=== PATIENT | male | born 1970 | race African-American/Black ===

== ENCOUNTER 2021-09-06 15:37 | Emergency (ER) | payer MEDICAID, OTHER ==
[~2021-09-06] VITALS: Ht 185.4 cm; Wt 104.0 kg
[~2021-09-06 15:37] MED LIST: AMLO10TA4 PO; ASPI-1079 PO; BENA10TA74 PO
[2021-09-06] MEDS ORDERED: HYDROCODONE/ACETAMINOPHEN 5/325MG TABLET PO ONE (18:45)
[2021-09-06] MEDS ORDERED: IBUPROFEN 600MG TABLET PO ONE (18:45)
[2021-09-06] MEDS ORDERED: IBUP-2028 MT (18:50)
[2021-09-06] MEDS ORDERED: HYDR-4001 MT (18:50)
[2021-09-06 20:52] VITALS: BP 162/85
== END 2021-09-06 20:54 | disposition home or self-care (01) ==
LOC: ER 15:37
DX: S92.355A Nondisplaced fracture of fifth metatarsal bone, left foot, initial encounter for closed fracture (principal); X50.1XXA Overexertion from prolonged static or awkward postures, initial encounter; Y93.01 Activity, walking, marching and hiking; Y92.9 Unspecified place or not applicable; I10 Essential (primary) hypertension; Z88.2 Allergy status to sulfonamides; Z88.8 Allergy status to other drugs, medicaments and biological substances; Z79.82 Long term (current) use of aspirin; Z98.890 Other specified postprocedural states
CPT/HCPCS: 29515; 73610; 73630; 99284; Z7610